=== PATIENT | female | born 1960 ===

== ENCOUNTER 2017-11-28 21:28 | Inpatient (IN) | payer MEDICARE, OTHER ==
[2017-11-28 21:32] VITALS: BMI 25.8
[2017-11-28] MEDS ORDERED: Sodium Chloride 0.9% 1,000 ML IV STA (21:47)
--- NOTE | 2017-11-28 21:53 | ED PDOC ---
HPI: Female Pain Time Seen by Provider: 11/28/17 21:39 Chief Complaint (Nursing): Fever Chief Complaint (Provider): Fever, Urinary frequency/urgency History Per: Family (son) History/Exam Limitations: no limitations Onset/Duration Of Symptoms: Days (x4) Current Symptoms Are (Timing): Still Present Additional Complaint(s): 57 year old female presents to the ER complaining of urinary urgency and frequency for 3-4 days. Denies any associated dysuria, abdominal pain, back pain , chest pain, shortness of breath, nausea, vomiting, or diarrhea. She reports 1 episode of incontinence at night. Today patient flew here from her home ([place]) and developed tactile fever and chills. Given Tylenol 1 hour prior to arrival. Patient also feels weak and per son, has seemed confused today. Was prescribed Bactrim by doctor in [place] and took 2 doses. Patient had a similar UTI 1 year ago. PMD: in [place] Past Medical History Reviewed: Historical Data, Nursing Documentation, Vital Signs Vital Signs: Last Vital Signs Temp 102.1 F H 11/28/17 21:33 Pulse 154 H 11/28/17 21:33 Resp 23 11/28/17 21:33 BP 117/80 11/28/17 21:33 Pulse Ox 98 11/28/17 21:33 - Medical History PMH: Diabetes (borderline), HTN, TIA (on plavix) Other PMH: uti - Surgical History Other surgeries: Left leg surgery for hip necrosis - Family History Family History: States: Unknown Family Hx - Living Arrangements Living Arrangements: With Family - Social History Alcohol: None Drugs: Denies - Home Medications Home Medications: Ambulatory Orders Medication Instructions Recorded Clonazepam [Clonazepam] 0.25 mg PO DAILY PRN 11/29/17 Clopidogrel [Plavix] 75 mg PO DAILY 11/29/17 HCTZ/Losartan Potassium [Hyzaar 1 tab PO DAILY 11/29/17 12.5 mg-50 mg] Levothyroxine Sodium [Levothroid] 0.137 mg PO QAM 11/29/17 Pantoprazole Sodium [Protonix] 40 mg PO DAILY 11/29/17 Pregabalin [Lyrica] 300 mg PO BID 11/29/17 Sertraline [Zoloft] 50 mg PO BID 11/29/17 - Allergies Allergies/Adverse Reactions: Allergies Allergy/AdvReac Type Severity Reaction Status Date / Time No Known Allergies Allergy Verified 11/28/17 21:31 Review of Systems ROS Statement: Except As Marked, All Systems Reviewed And Found Negative Constitutional: Positive for: Fever, Chills Cardiovascular: Negative for: Chest Pain Respiratory: Negative for: Shortness of Breath Gastrointestinal: Negative for: Nausea, Vomiting, Abdominal Pain, Diarrhea Genitourinary Female: Positive for: Frequency, Incontinence (x1), Other (urgency ). Negative for: Dysuria, Hematuria Neurological: Positive for: Weakness (generalized), Confusion Physical Exam - Reviewed Nursing Documentation Reviewed: Yes Vital Signs Reviewed: Yes - Physical Exam Appears: Positive for: Non-toxic, No Acute Distress Head Exam: Positive for: ATRAUMATIC, NORMOCEPHALIC Skin: Positive for: Normal Color, Warm, Dry Eye Exam: Positive for: EOMI, Normal appearance, PERRL ENT: Positive for: Normal ENT Inspection Neck: Positive for: Normal, Painless ROM Cardiovascular/Chest: Positive for: Tachycardia (with regular rhythm). Negative for: Murmur Respiratory: Positive for: Normal Breath Sounds. Negative for: Accessory Muscle Use, Respiratory Distress Pulses-Radial (L): 2+ Pulses-Radial (R): 2+ Gastrointestinal/Abdominal: Positive for: Normal Exam, Soft. Negative for: Tenderness, Distended Back: Positive for: Normal Inspection. Negative for: L CVA Tenderness, R CVA Tenderness Extremity: Positive for: Other (Left leg with chronic weakness (patient is wheelchair bound per family), Right leg has good strength and sensation). Negative for: Tenderness, Swelling Neurologic/Psych: Positive for: Alert, residential leasing agent II-XII, Oriented (x3). Negative for : Motor/Sensory Deficits (new deficits), Facial Droop - Laboratory Results Result Diagrams: 11/28/17 22:15 11/28/17 22:15 Interpretation Of Abn Labs: 29/1.3 bun/cr - ECG ECG: Positive for: Interpreted By Me, Viewed By Me Interpretation Of Abn EKG: junctional O2 Sat by Pulse Oximetry: 98 (RA) Pulse Ox Interpretation: Normal - Radiology X-Ray: Interpreted by Me, Viewed By Me X-Ray Interpretation: No Acute Disease - Progress ED Course And Treament: 1131: Feels better. AAOx3. HR improved. 1152: Spoke with Dr. Obregon who will admit tele. Medical Decision Making Medical Decision Making: Time: 21:47 Initial Plan: * VBG * EKG * Magnesium * Phosphorous * Troponin I * CMP * CBC * PTT * PT * Chest x-ray * Urinalysis * Urine culture * Blood culture * IV fluids * Motrin 600 mg PO * CT Abdomen/Pelvis with IV contrast Scribe Attestation: Documented by Bhavya Kenney, acting as a scribe for Wesley Mosqueda MD Provider Scribe Attestation: All medical record entries made by the Scribe were at my direction and personally dictated by me. I have reviewed the chart and agree that the record accurately reflects my personal performance of the history, physical exam, medical decision making, and the department course for this patient. I have also personally directed, reviewed, and agree with the discharge instructions and disposition. Disposition - Clinical Impression Clinical Impression: Sepsis, UTI (urinary tract infection) - Patient ED Disposition Is Patient to be Admitted: Yes Counseled Patient/Family Regarding: Studies Performed, Diagnosis - Disposition Disposition Time: 23:53 Condition: FAIR
[2017-11-28 22:26] LABS: BASO % 0.6 % (0.0-2.0); EOS % 0.1 % (0.0-4.0); HEMOGLOBIN 15.3 g/dL (12.0-16.0); LYMPH # 0.5 K/uL (1.0-4.3); LYMPH % 6.8 % (20.0-40.0); MEAN CELL VOLUME 84.8 fl (81.0-99.0); MEAN CORPUSCULAR HEMOGLOBIN 28.3 pg (27.0-31.0); MEAN CORPUSCULAR HGB CONC 33.4 g/dL (33.0-37.0); MEAN PLATELET VOLUME 10.2 fl (7.2-11.7); MONO # 0.6 K/uL (0.0-0.8); MONO % 7.8 % (0.0-10.0); NEUT # 6.7 K/uL (1.8-7.0); NEUT % 84.7 % (50.0-75.0); NRBC % 0.2 % (0.0-0.0); PLATELET COUNT 149 K/uL (130-400); RBC 5.39 Mil/uL (3.80-5.20); RED CELL DISTRIBUTION WIDTH 14.7 % (11.5-14.5); WHITE BLOOD COUNT 7.9 K/uL (4.8-10.8)
[2017-11-28 22:29] LABS: VENOUS BLOOD GAS BASE EXCESS -1.1 mmol/L (0.0-2.0); VENOUS BLOOD GAS PCO2 34 mmHg (40-60); VENOUS BLOOD GAS PO2 31 mm/Hg (30-55); VENOUS BLOOD PH 7.43 (7.32-7.43)
[2017-11-28 22:54] LABS: ALB/GLOB RATIO 1.1 (1.0-2.1); ALBUMIN 4.1 g/dL (3.5-5.0); CALCIUM 10.2 mg/dL (8.4-10.2); MAGNESIUM 1.6 MG/DL (1.6-2.3)
[2017-11-28 23:03] LABS: TROPONIN I 0.039 ng/mL (0.00-0.120)
[2017-11-28] MEDS ORDERED: Ciprofloxacin 400mg/200ml D5W 400 MG/200 ML BAG IV STA (23:42)
[2017-11-28 23:52] LABS: INR 1.3 (0.9-1.2); PARTIAL THROMBOPLASTIN TIME 34.6 Seconds (25.6-37.1); PROTHROMBIN TIME 14.6 Seconds (9.8-13.1)
[2017-11-29] LABS: BANDS 1 % (0-2); LYMPHOCYTE 9 % (20-50); MONOCYTE 3 % (0-10); NEUTROPHIL 85 % (42-75); REACTIVE LYMPHOCYTES 2 % (0-0); TOTAL CELLS COUNTED 100
[2017-11-29 00:01] LABS: PLATELET ESTIMATE NORMAL (NORMAL)
[2017-11-29] MEDS ORDERED: Ciprofloxacin 400mg/200ml D5W 400 MG/200 ML BAG IVPB ONE (00:07)
--- NOTE | 2017-11-29 00:15 | CT ---
EXAM: CT Abdomen and Pelvis Without Intravenous Contrast CLINICAL HISTORY: 57 years old, female; Pain; Abdominal pain; Generalized; Prior surgery; Surgery date: 6+ months; Surgery type: HX of hernia surgery; Additional info: R/O stone TECHNIQUE: Axial computed tomography images of the abdomen and pelvis without intravenous contrast. All CT scans at this facility use one or more dose reduction techniques, viz.: automated exposure control; ma/kV adjustment per patient size (including targeted exams where dose is matched to indication; i.e. head); or iterative reconstruction technique. Coronal and sagittal reformatted images were created and reviewed. COMPARISON: No relevant prior studies available. FINDINGS: Lower thorax: There is a small pericardial fluid collection present. ABDOMEN: Liver: There is a 2.7 x 2.2 x 2.6 cm cyst with wall calcification in the right hepatic lobe. Gallbladder and bile ducts: There has been a cholecystectomy. No ductal dilation. Pancreas: Unremarkable. No ductal dilation. Spleen: Unremarkable. No splenomegaly. Adrenals: Unremarkable. No mass. Kidneys and ureters: There is a 12 mm stone in the right renal pelvis. There is a 13 mm stone in right upper pole. Mild perinephric stranding bilaterally, left greater than right. Left periureteral inflammatory stranding. No hydronephrosis. Stomach and bowel: Mild diverticulosis is present in the sigmoid and descending colon. There is diffuse thinning of the abdominal wall musculature. There is a broad-based central hernia in the pelvis containing small bowel without obstruction. No mucosal thickening. Appendix: No findings to suggest acute appendicitis. PELVIS: Bladder: Unremarkable. No stones. Reproductive: Unremarkable as visualized. ABDOMEN and PELVIS: Intraperitoneal space: Unremarkable. No free air. No significant fluid collection. Bones/joints: The left femoral head is absent likely secondary to surgical resection. There soft tissue density surrounding the proximal left proximal femur. There are lytic changes involving the left hemipelvis with cortical erosion. Scoliosis and degenerative changes. Vasculature: There are numerous benign phleboliths in the pelvis. The aorta demonstrates mild atherosclerotic calcification. No abdominal aortic aneurysm. There is a soft tissue defect in the left region suggesting a decubitus ulcer. IMPRESSION: Right renal stone. Right pelvic stone. No significant hydronephrosis. Bilateral perinephric stranding, left greater than right. Left periureteral inflammatory stranding. Correlate clinically to exclude infectious/inflammatory process. Large broad-based ventral hernia without obstruction. Probable surgical resection of the left femoral head with surrounding soft tissue density. Lytic changes in the left hemipelvis with cortical erosion. Recommend correlation with surgical history. The Diverticulosis. No acute diverticulitis. Hepatic cyst with wall calcification.
[2017-11-29 01:15] LABS: VENOUS BLOOD GAS BASE EXCESS -4.4 mmol/L (0.0-2.0); VENOUS BLOOD GAS PCO2 35 mmHg (40-60); VENOUS BLOOD GAS PO2 40 mm/Hg (30-55); VENOUS BLOOD PH 7.37 (7.32-7.43)
[2017-11-29 01:53] LABS: URINE BACTERIA OCC (<OCC); URINE BILIRUBIN NEGATIVE (NEGATIVE); URINE BLOOD MODERATE (NEGATIVE); URINE CLARITY TURBID (Clear); URINE COLOR YELLOW (YELLOW); URINE GLUCOSE (UA) NEG (Normal); URINE LEUKOCYTE ESTERASE LARGE Leu/uL (Negative); URINE NITRATE NEGATIVE (NEGATIVE); URINE PROTEIN 100 mg/dL (NEGATIVE); URINE UROBILINOGEN 0.2-1.0 mg/dL (0.2-1.0); WBC CLUMPS MOD /hpf
[2017-11-29] MEDS: Sodium Chloride 0.9% 1,000 ML IV SCH ×2 (07:49→19:03)
[2017-11-29] MEDS: Ciprofloxacin 200mg/100ml D5W 100 ML IVPB SCH ×2 (09:12→21:16)
[2017-11-29] MEDS: Pantoprazole 40 mg EC Tab PO SCH (09:15)
--- NOTE | 2017-11-29 10:38 | RAD ---
HISTORY: Sepsis Patient COMPARISON: No prior. FINDINGS: LUNGS: No active pulmonary disease. PLEURA: No significant pleural effusion identified, no pneumothorax apparent. CARDIOVASCULAR: Normal. OSSEOUS STRUCTURES: Gross S-shaped thoracolumbar scoliotic deformity distorts the mediastinum somewhat. VISUALIZED UPPER ABDOMEN: Normal. OTHER FINDINGS: None. IMPRESSION: No definite acute infiltrate or pleural effusion identified. No pneumothorax.
--- NOTE | 2017-11-29 11:36 | CP.PCM.CON ---
History of Present Illness - History of Present Illness History of Present Illness: 57 year old female presents to the ER complaining of urinary urgency and frequency for 3-4 days. Cardiology consult is called for bradycardia. 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 years 20 years ago she had Ablation of the AV Node secondary to atrial fibrillation She denies any dizziness or chest pain or syncope The pt is comfortable No cardiac work up needed at this time Past Patient History - Past Medical History & Family History Past Medical History?: Yes - Past Social History Smoking Status: Never Smoked - CARDIAC Hx Cardiac Disorders: Yes Hx Hypertension: Yes - PULMONARY Hx Respiratory Disorders: No - NEUROLOGICAL Hx Neurological Disorder: Yes Hx Transient Ischemic Attacks (TIA): Yes (on plavix) - HEENT Hx HEENT Problems: No - RENAL Hx Chronic Kidney Disease: No - ENDOCRINE/METABOLIC Hx Endocrine Disorders: Yes Hx Diabetes Mellitus Type 2: Yes - HEMATOLOGICAL/ONCOLOGICAL Hx Blood Disorders: No - INTEGUMENTARY Hx Dermatological Problems: No - MUSCULOSKELETAL/RHEUMATOLOGICAL Hx Musculoskeletal Disorders: No Hx Falls: No - GASTROINTESTINAL Hx Gastrointestinal Disorders: No - GENITOURINARY/GYNECOLOGICAL Hx Genitourinary Disorders: Yes Hx Urinary Tract Infection: Yes - PSYCHIATRIC Hx Psychophysiologic Disorder: No Hx Substance Use: No - SURGICAL HISTORY Hx Surgeries: Yes Hx Herniorrhaphy: Yes Hx Musculoskeletal Surgery: Yes Hx Thyroidectomy: Yes Other/Comment: Left hip surgery. - ANESTHESIA Hx Anesthesia: Yes Hx Anesthesia Reactions: No Hx Malignant Hyperthermia: No Meds Allergies/Adverse Reactions: Allergies Allergy/AdvReac Type Severity Reaction Status Date / Time No Known Allergies Allergy Verified 11/28/17 21:31 - Medications Medications: Current Medications Clonazepam (Klonopin) 0.25 mg PO DAILY PRN PRN Reason: Anxiety Last Admin: 11/29/17 11:01 Dose: 0.25 mg Clopidogrel Bisulfate (Plavix) 75 mg PO DAILY [facility] Last Admin: 11/29/17 09:12 Dose: 75 mg Ciprofloxacin (Cipro 200mg/100ml D5w) 100 mls @ 100 mls/hr IVPB Q12 [facility] Last Admin: 11/29/17 09:12 Dose: 100 mls/hr Sodium Chloride (Sodium Chloride 0.9%) 1,000 mls @ 90 mls/hr IV .[id number] [facility] Stop: 11/30/17 05:32 Last Admin: 11/29/17 07:49 Dose: 90 mls/hr Levothyroxine Sodium (Levothroid) 137 mcg PO DAILY@0630 [facility] Last Admin: 11/29/17 07:01 Dose: 137 mcg Pantoprazole Sodium (Protonix Ec Tab) 40 mg PO DAILY [facility] Last Admin: 11/29/17 09:15 Dose: 40 mg Pregabalin (Lyrica) 300 mg PO BID [facility] Last Admin: 11/29/17 09:15 Dose: 300 mg Sertraline HCl (Zoloft) 50 mg PO BID [facility] Last Admin: 11/29/17 09:13 Dose: 50 mg Results - Vital Signs Recent Vital Signs: Last Vital Signs Temp 97.2 F L 11/29/17 08:14 Pulse 53 L 11/29/17 09:00 Resp 18 11/29/17 08:14 BP 96/74 L 11/29/17 08:14 Pulse Ox 95 11/29/17 08:14 - Labs Result Diagrams: 11/28/17 22:15 11/28/17 22:15 Labs: Laboratory Results - last 24 hr 11/28/17 11/28/17 11/28/17 22:15 22:15 22:15 WBC 7.9 RBC 5.39 H Hgb 15.3 Hct 45.7 MCV 84.8 MCH 28.3 MCHC 33.4 RDW 14.7 H Plt Count 149 MPV 10.2 Neut % (Auto) 84.7 H Lymph % (Auto) 6.8 L [place] % (Auto) 7.8 Eos % (Auto) 0.1 Baso % (Auto) 0.6 Neut # (Auto) 6.7 Lymph # (Auto) 0.5 L [place] # (Auto) 0.6 Eos # (Auto) 0.0 Baso # (Auto) 0.0 Neutrophils % (Manual) 85 H Band Neutrophils % 1 Lymphocytes % (Manual) 9 L Reactive Lymphs % 2 H Monocytes % (Manual) 3 Platelet Estimate Normal RBC Morphology Normal PT 14.6 H INR 1.3 H APTT 34.6 pO2 VBG pH VBG pCO2 VBG HCO3 VBG Total CO2 VBG O2 Sat (Calc) VBG Base Excess VBG Potassium Glucose Lactate FiO2 Sodium 139 Potassium 3.5 L Chloride 103 Carbon Dioxide 19 L Anion Gap 21 H BUN 29 H Creatinine 1.3 H Est GFR ( Amer) 51 Est GFR (Non-Af Amer) 42 POC Glucose (mg/dL) Random Glucose 165 H Calcium 10.2 Phosphorus 1.7 L Magnesium 1.6 Total Bilirubin 1.8 H AST 33 ALT 47 Alkaline Phosphatase 110 Troponin I 0.0390 Total Protein 7.7 Albumin 4.1 Globulin 3.7 Albumin/Globulin Ratio 1.1 Venous Blood Potassium Urine Color Urine Clarity Urine pH Ur Specific [place] Urine Protein Urine Glucose (UA) Urine Ketones Urine Blood Urine Nitrate Urine Bilirubin Urine Urobilinogen Ur Leukocyte Esterase Urine RBC (Auto) Urine WBC Clumps (Auto) Urine Microscopic WBC Urine Bacteria Urine Yeast (Budding) 11/28/17 11/28/17 11/29/17 22:26 23:50 01:13 WBC RBC Hgb Hct MCV MCH MCHC RDW Plt Count MPV Neut % (Auto) Lymph % (Auto) [place] % (Auto) Eos % (Auto) Baso % (Auto) Neut # (Auto) Lymph # (Auto) [place] # (Auto) Eos # (Auto) Baso # (Auto) Neutrophils % (Manual) Band Neutrophils % Lymphocytes % (Manual) Reactive Lymphs % Monocytes % (Manual) Platelet Estimate RBC Morphology PT INR APTT pO2 31 40 VBG pH 7.43 7.37 VBG pCO2 34 L 35 L VBG HCO3 23.1 20.8 VBG Total CO2 23.6 21.3 L VBG O2 Sat (Calc) 68.8 H 80.5 H VBG Base Excess -1.1 L -4.4 L VBG Potassium 3.4 L 3.0 L Glucose 169 H 289 H Lactate 2.0 1.7 FiO2 21.0 21.0 Sodium 136.0 129.0 L Potassium Chloride 104.0 104.0 Carbon Dioxide Anion Gap BUN Creatinine Est GFR ( Amer) Est GFR (Non-Af Amer) POC Glucose (mg/dL) 251 H Random Glucose Calcium Phosphorus Magnesium Total Bilirubin AST ALT Alkaline Phosphatase Troponin I Total Protein Albumin Globulin Albumin/Globulin Ratio Venous Blood Potassium 3.4 L 3.0 L Urine Color Urine Clarity Urine pH Ur Specific [place] Urine Protein Urine Glucose (UA) Urine Ketones Urine Blood Urine Nitrate Urine Bilirubin Urine Urobilinogen Ur Leukocyte Esterase Urine RBC (Auto) Urine WBC Clumps (Auto) Urine Microscopic WBC Urine Bacteria Urine Yeast (Budding) 11/29/17 11/29/17 01:32 05:54 WBC RBC Hgb Hct MCV MCH MCHC RDW Plt Count MPV Neut % (Auto) Lymph % (Auto) [place] % (Auto) Eos % (Auto) Baso % (Auto) Neut # (Auto) Lymph # (Auto) [place] # (Auto) Eos # (Auto) Baso # (Auto) Neutrophils % (Manual) Band Neutrophils % Lymphocytes % (Manual) Reactive Lymphs % Monocytes % (Manual) Platelet Estimate RBC Morphology PT INR APTT pO2 VBG pH VBG pCO2 VBG HCO3 VBG Total CO2 VBG O2 Sat (Calc) VBG Base Excess VBG Potassium Glucose Lactate FiO2 Sodium Potassium Chloride Carbon Dioxide Anion Gap BUN Creatinine Est GFR ( Amer) Est GFR (Non-Af Amer) POC Glucose (mg/dL) 131 H Random Glucose Calcium Phosphorus Magnesium Total Bilirubin AST ALT Alkaline Phosphatase Troponin I Total Protein Albumin Globulin Albumin/Globulin Ratio Venous Blood Potassium Urine Color Yellow Urine Clarity Turbid Urine pH 6.0 Ur Specific [place] 1.015 Urine Protein 100 Urine Glucose (UA) Neg Urine Ketones Negative Urine Blood Moderate Urine Nitrate Negative Urine Bilirubin Negative Urine Urobilinogen 0.2-1.0 Ur Leukocyte Esterase Large Urine RBC (Auto) 51 H Urine WBC Clumps (Auto) Mod H Urine Microscopic WBC 1037 H Urine Bacteria Occ H Urine Yeast (Budding) Few H Assessment & Plan (1) Bradycardia Assessment and Plan: Secondary to Ablation 20 yrs ago Status: Acute
--- NOTE | 2017-11-29 13:35 | CP.PCM.HP ---
History of Present Illness - History of Present Illness History of Present Illness: CC: Urine symptoms/ Fever 57 y/o F, [facility] symptoms that began 4 days [employer] , Pt with no relief. Pt with Hx of UTI 1 year ago, c/o of difficulty voiding associated to fever and chills from day [employer] while at home, in ER TMAx 102.1 HR: 154, BP 117/80. Worsening symptoms: Urinary frequency/urgency. Also in Telemetry, Pt having sinus bradycardia, HR in the 40's. She reported Hx of Ablation of the AV node 2nd to A Fib 20 yrs ago, currently asymptomatic. Aggravated factor: Wheelchair bound. Pt denied: Dysuria, abdominal pain, n/d/v, bloody stool, back pain, CP, palpitations, SOB, sick contact, Pt admits recent travel to [facility]. PMHx: UTI 1 year ago, TIA on Plavix, HTN, DM, Anxiety, L THR. Abd/Pelv CT shows: R renal and pelvis stones. Diverticulitis. Large broad- base ventral hernia w/o obstruction. B/L perinephric stranding, L>R. EKG: Bradycardia. CXR: No infiltrate or Pneumothorax. Present on Admission - Present on Admission Any Indicators Present on Admission: No Review of Systems - Constitutional Constitutional: Chills, Fever, Weakness - EENT Eyes: Other (negative) Ears: Other (negative) Nose/Mouth/Throat: Other (negative) - Cardiovascular Cardiovascular: Slow Heart Rate - Respiratory Respiratory: Other (negative) - Gastrointestinal Gastrointestinal: Other (negative) - Genitourinary Genitourinary: Difficulty Urinating, Urinary Urgency, Voiding Freq/Small Amts - Musculoskeletal Musculoskeletal: Other (negative) - Integumentary Integumentary: Other (negative) - Neurological Neurological: Weakness - Psychiatric Psychiatric: Anxiety - Endocrine Endocrine: Other (negative) - Hematologic/Lymphatic Hematologic: Other (negative) Past Patient History - Past Medical History & Family History Past Medical History?: Yes Pertinent Family History: Unknown - Past Social History Smoking Status: Never Smoked Alcohol: None Drugs: Denies Home Situation {Lives}: With Family - CARDIAC Hx Cardiac Disorders: Yes Hx Hypertension: Yes - PULMONARY Hx Respiratory Disorders: No - NEUROLOGICAL Hx Neurological Disorder: Yes Hx Transient Ischemic Attacks (TIA): Yes (on plavix) - HEENT Hx HEENT Problems: No - RENAL Hx Chronic Kidney Disease: No - ENDOCRINE/METABOLIC Hx Endocrine Disorders: Yes Hx Diabetes Mellitus Type 2: Yes - HEMATOLOGICAL/ONCOLOGICAL Hx Blood Disorders: No - INTEGUMENTARY Hx Dermatological Problems: No - MUSCULOSKELETAL/RHEUMATOLOGICAL Hx Musculoskeletal Disorders: No Hx Falls: No - GASTROINTESTINAL Hx Gastrointestinal Disorders: No - GENITOURINARY/GYNECOLOGICAL Hx Genitourinary Disorders: Yes Hx Urinary Tract Infection: Yes - PSYCHIATRIC Hx Psychophysiologic Disorder: No Hx Substance Use: No - SURGICAL HISTORY Hx Surgeries: Yes Hx Herniorrhaphy: Yes Hx Musculoskeletal Surgery: Yes Hx Thyroidectomy: Yes Other/Comment: Left hip surgery. - ANESTHESIA Hx Anesthesia: Yes Hx Anesthesia Reactions: No Hx Malignant Hyperthermia: No Meds Allergies/Adverse Reactions: Allergies Allergy/AdvReac Type Severity Reaction Status Date / Time No Known Allergies Allergy Verified 11/28/17 21:31 Physical Exam - Constitutional Appears: No Acute Distress - Head Exam Head Exam: NORMAL INSPECTION - Eye Exam Eye Exam: PERRL - ENT Exam ENT Exam: Normal Exam - Neck Exam Neck exam: Positive for: Normal Inspection - Respiratory Exam Respiratory Exam: NORMAL BREATHING PATTERN - Cardiovascular Exam Cardiovascular Exam: Bradycardia - GI/Abdominal Exam GI & Abdominal Exam: Normal Bowel Sounds, Soft - Extremities Exam Additional comments: LLE weakness. - Back Exam Back exam: NORMAL INSPECTION - Neurological Exam Neurological exam: Alert, CN II-XII Intact, Oriented x3 Additional comments: Weakness LLE - Psychiatric Exam Psychiatric exam: Normal Mood - Skin Skin Exam: Warm Results - Vital Signs Recent Vital Signs: Last Vital Signs Temp 97.4 F L 11/29/17 12:17 Pulse 51 L 11/29/17 12:17 Resp 18 11/29/17 12:17 BP 105/74 11/29/17 12:17 Pulse Ox 96 11/29/17 12:17 reviewed J.P. - Labs Result Diagrams: 11/28/17 22:15 11/28/17 22:15 Labs: Laboratory Results - last 24 hr 11/28/17 11/28/17 11/28/17 22:15 22:15 22:15 WBC 7.9 RBC 5.39 H Hgb 15.3 Hct 45.7 MCV 84.8 MCH 28.3 MCHC 33.4 RDW 14.7 H Plt Count 149 MPV 10.2 Neut % (Auto) 84.7 H Lymph % (Auto) 6.8 L [place] % (Auto) 7.8 Eos % (Auto) 0.1 Baso % (Auto) 0.6 Neut # (Auto) 6.7 Lymph # (Auto) 0.5 L [place] # (Auto) 0.6 Eos # (Auto) 0.0 Baso # (Auto) 0.0 Neutrophils % (Manual) 85 H Band Neutrophils % 1 Lymphocytes % (Manual) 9 L Reactive Lymphs % 2 H Monocytes % (Manual) 3 Platelet Estimate Normal RBC Morphology Normal PT 14.6 H INR 1.3 H APTT 34.6 pO2 VBG pH VBG pCO2 VBG HCO3 VBG Total CO2 VBG O2 Sat (Calc) VBG Base Excess VBG Potassium Glucose Lactate FiO2 Sodium 139 Potassium 3.5 L Chloride 103 Carbon Dioxide 19 L Anion Gap 21 H BUN 29 H Creatinine 1.3 H Est GFR ( Amer) 51 Est GFR (Non-Af Amer) 42 POC Glucose (mg/dL) Random Glucose 165 H Calcium 10.2 Phosphorus 1.7 L Magnesium 1.6 Total Bilirubin 1.8 H AST 33 ALT 47 Alkaline Phosphatase 110 Troponin I 0.0390 Total Protein 7.7 Albumin 4.1 Globulin 3.7 Albumin/Globulin Ratio 1.1 Venous Blood Potassium Urine Color Urine Clarity Urine pH Ur Specific [place] Urine Protein Urine Glucose (UA) Urine Ketones Urine Blood Urine Nitrate Urine Bilirubin Urine Urobilinogen Ur Leukocyte Esterase Urine RBC (Auto) Urine WBC Clumps (Auto) Urine Microscopic WBC Urine Bacteria Urine Yeast (Budding) 11/28/17 11/28/17 11/29/17 22:26 23:50 01:13 WBC RBC Hgb Hct MCV MCH MCHC RDW Plt Count MPV Neut % (Auto) Lymph % (Auto) [place] % (Auto) Eos % (Auto) Baso % (Auto) Neut # (Auto) Lymph # (Auto) [place] # (Auto) Eos # (Auto) Baso # (Auto) Neutrophils % (Manual) Band Neutrophils % Lymphocytes % (Manual) Reactive Lymphs % Monocytes % (Manual) Platelet Estimate RBC Morphology PT INR APTT pO2 31 40 VBG pH 7.43 7.37 VBG pCO2 34 L 35 L VBG HCO3 23.1 20.8 VBG Total CO2 23.6 21.3 L VBG O2 Sat (Calc) 68.8 H 80.5 H VBG Base Excess -1.1 L -4.4 L VBG Potassium 3.4 L 3.0 L Glucose 169 H 289 H Lactate 2.0 1.7 FiO2 21.0 21.0 Sodium 136.0 129.0 L Potassium Chloride 104.0 104.0 Carbon Dioxide Anion Gap BUN Creatinine Est GFR ( Amer) Est GFR (Non-Af Amer) POC Glucose (mg/dL) 251 H Random Glucose Calcium Phosphorus Magnesium Total Bilirubin AST ALT Alkaline Phosphatase Troponin I Total Protein Albumin Globulin Albumin/Globulin Ratio Venous Blood Potassium 3.4 L 3.0 L Urine Color Urine Clarity Urine pH Ur Specific [place] Urine Protein Urine Glucose (UA) Urine Ketones Urine Blood Urine Nitrate Urine Bilirubin Urine Urobilinogen Ur Leukocyte Esterase Urine RBC (Auto) Urine WBC Clumps (Auto) Urine Microscopic WBC Urine Bacteria Urine Yeast (Budding) 11/29/17 11/29/17 11/29/17 01:32 05:54 11:40 WBC RBC Hgb Hct MCV MCH MCHC RDW Plt Count MPV Neut % (Auto) Lymph % (Auto) [place] % (Auto) Eos % (Auto) Baso % (Auto) Neut # (Auto) Lymph # (Auto) [place] # (Auto) Eos # (Auto) Baso # (Auto) Neutrophils % (Manual) Band Neutrophils % Lymphocytes % (Manual) Reactive Lymphs % Monocytes % (Manual) Platelet Estimate RBC Morphology PT INR APTT pO2 VBG pH VBG pCO2 VBG HCO3 VBG Total CO2 VBG O2 Sat (Calc) VBG Base Excess VBG Potassium Glucose Lactate FiO2 Sodium Potassium Chloride Carbon Dioxide Anion Gap BUN Creatinine Est GFR ( Amer) Est GFR (Non-Af Amer) POC Glucose (mg/dL) 131 H 133 H Random Glucose Calcium Phosphorus Magnesium Total Bilirubin AST ALT Alkaline Phosphatase Troponin I Total Protein Albumin Globulin Albumin/Globulin Ratio Venous Blood Potassium Urine Color Yellow Urine Clarity Turbid Urine pH 6.0 Ur Specific [place] 1.015 Urine Protein 100 Urine Glucose (UA) Neg Urine Ketones Negative Urine Blood Moderate Urine Nitrate Negative Urine Bilirubin Negative Urine Urobilinogen 0.2-1.0 Ur Leukocyte Esterase Large Urine RBC (Auto) 51 H Urine WBC Clumps (Auto) Mod H Urine Microscopic WBC 1037 H Urine Bacteria Occ H Urine Yeast (Budding) Few H reviewed J.P. - EKG Data EKG comments: reviewed J.P. - Imaging and Cardiology Chest x-ray Status: Report reviewed by me (Timothy) CT scan - pelvis Status: Report reviewed by me (Timothy) CT scan - abdomen Status: Report reviewed by me (Timothy) Assessment & Plan (1) UTI (urinary tract infection) Status: Acute Priority: High (2) Bradycardia Status: Acute Priority: High (3) HTN (hypertension) Status: Chronic Priority: Low (4) Hypothyroidism Status: Chronic Priority: Medium (5) Anxiety Status: Chronic Priority: Medium (6) Depression Status: Chronic Priority: Medium - Assessment and Plan (Free Text) Plan: F/U Echo, EKG, Blood C-S, U C-S, continue Cipro, Lyrica, klonopin, Protonix and rest of medications, Cardiology consult appreciated. - Date & Time Date: 11/29/17 Time: 12:45
--- NOTE | 2017-11-29 18:14 | CARD ---
APPROVED REPORT EXAM: Two-dimensional and M-mode echocardiogram with Doppler and color Doppler. Other Information Quality : GoodRhythm : Bradycardia INDICATION Abnormal EKG/Arrhythmia Bradycardia 2D DIMENSIONS IVSd1.55 (0.7-1.1cm)LVDd4.00 (3.9-5.9cm) LVOT Diameter2.19 (1.8-2.4cm)PWd1.00 (0.7-1.1cm) IVSs1.49 (0.8-1.2cm)LVDs4.11 (2.5-4.0cm) FS (%) 2.5 %PWs1.13 (0.8-1.2cm) LVEF (%)55.0 (>50%) M-Mode DIMENSIONS Left Atrium (MM)4.94 (2.5-4.0cm)IVSd1.59 (0.7-1.1cm) Aortic Root3.06 (2.2-3.7cm)LVDd4.56 (4.0-5.6cm) Aortic Cusp Exc.1.88 (1.5-2.0cm)PWd1.66 (0.7-1.1cm) IVSs2.13 cmFS (%) 39 % LVDs2.78 (2.0-3.8cm)PWs1.81 cm Mitral Valve MV E Srixzxgf86.8cm/sMV DECEL [id number] A Tbawtixt06.2cm/s MV KNV59sbC/A ratio2.8MVA (PHT)4.88cm2 TDI Lateral E' Peak V15.89cm/sMedial E' Peak V10.51cm/sE/Lateral E'3.3 E/Medial E'4.9 Pulmonary Valve PV Peak Lnofjbyw62.8cm/s Tricuspid Valve TR Peak Dmthionq738ei/sRAP [id number] Peak Gr.17mmHg [id number] LEFT VENTRICLE The left ventricle is normal size. There is mild concentric left ventricular hypertrophy. The left ventricular ejection fraction is within the normal range. There is a flattened septum Transmitral Doppler flow pattern is Grade I-abnormal relaxation pattern. RIGHT VENTRICLE The right ventricle is mildly dilated. There is normal right ventricular wall thickness. The right ventricular systolic function is normal. ATRIA The left atrium is mildly dilated. The right atrium size is normal. AORTIC VALVE The aortic valve is not well visualized. No aortic regurgitation is present. There is no aortic valvular stenosis. MITRAL VALVE The mitral valve is mildly thickened. There is no mitral valve stenosis. There is no mitral valve regurgitation noted. TRICUSPID VALVE The tricuspid valve is normal in structure. There is mild to moderate tricuspid regurgitation. PULMONIC VALVE The pulmonary valve is normal in structure. There is trace pulmonic valvular regurgitation. GREAT VESSELS The aortic root is normal in size. The IVC is dilated. PERICARDIAL EFFUSION There is a trace circumferential pericardial effusion. <Conclusion> The left ventricle is normal size. There is mild concentric left ventricular hypertrophy. The left ventricular ejection fraction is within the normal range. There is a flattened septum Transmitral Doppler flow pattern is Grade I-abnormal relaxation pattern. There is mild to moderate tricuspid regurgitation.
--- NOTE | 2017-11-29 19:07 | CARD ---
APPROVED REPORT EKG Measurement Heart [id number] <Conclusion> Accelerated Junctional rhythm Nonspecific ST abnormality, Abnormal ECG
--- NOTE | 2017-11-29 19:10 | CARD ---
APPROVED REPORT EKG Measurement Heart [id number] <Conclusion> Accelerated Junctional rhythm with retrograde conduction Pulmonary disease pattern Left anterior fascicular block Abnormal ECG
--- NOTE | 2017-11-29 19:11 | CARD ---
APPROVED REPORT EKG Measurement Heart [id number] [id number] <Conclusion> Junctional tachycardia Pulmonary disease pattern Left anterior fascicular block Abnormal ECG
[2017-11-30] MEDS: Sodium Chloride 0.9% 1,000 ML IV SCH (04:41)
[2017-11-30 08:36] VITALS: O2SAT 98
[2017-11-30] MEDS: Ciprofloxacin 200mg/100ml D5W 100 ML IVPB SCH (09:21)
[2017-11-30] MEDS: Pantoprazole 40 mg EC Tab PO SCH (09:22)
--- NOTE | 2017-11-30 11:39 | CP.PCM.PN ---
Subjective - Date & Time of Evaluation Date of Evaluation: 11/30/17 Time of Evaluation: 10:00 - Subjective Subjective: pt denies any complaints HR : 82 BPM today Objective - Vital Signs/Intake and Output Vital Signs (last 24 hours): Temp Pulse Resp BP Pulse Ox 98.7 F 65 18 115/78 98 11/30/17 08:35 11/30/17 08:35 11/30/17 08:35 11/30/17 08:35 11/30/17 08:35 - Medications Medications: Current Medications Acetaminophen (Tylenol 325mg Tab) 650 mg PO Q4 PRN PRN Reason: Fever >100.4 F Last Admin: 11/30/17 00:25 Dose: 650 mg Clonazepam (Klonopin) 0.25 mg PO DAILY PRN PRN Reason: Anxiety Last Admin: 11/30/17 00:16 Dose: 0.25 mg Clopidogrel Bisulfate (Plavix) 75 mg PO DAILY [facility] Last Admin: 11/30/17 09:22 Dose: 75 mg Docusate Sodium (Colace) 100 mg PO BID [facility] Last Admin: 11/30/17 10:47 Dose: 100 mg Ciprofloxacin (Cipro 200mg/100ml D5w) 100 mls @ 100 mls/hr IVPB Q12 [facility] Last Admin: 11/30/17 09:21 Dose: 100 mls/hr Levothyroxine Sodium (Levothroid) 137 mcg PO DAILY@0630 [facility] Last Admin: 11/30/17 06:35 Dose: 137 mcg Pantoprazole Sodium (Protonix Ec Tab) 40 mg PO DAILY [facility] Last Admin: 11/30/17 09:22 Dose: 40 mg Pregabalin (Lyrica) 300 mg PO BID [facility] Last Admin: 11/30/17 10:30 Dose: 300 mg Sertraline HCl (Zoloft) 50 mg PO BID [facility] Last Admin: 11/30/17 09:22 Dose: 50 mg - Labs Labs: 11/28/17 22:15 11/28/17 22:15 PT 14.6 Seconds (9.8-13.1) H 11/28/17 22:15 INR 1.3 (0.9-1.2) H 11/28/17 22:15 APTT 34.6 Seconds (25.6-37.1) 11/28/17 22:15 Assessment and Plan (1) Bradycardia Status: Acute
[2017-11-30 12:26] VITALS: BP 112/80; PULSE 75; RESP 20; TEMP 98
--- NOTE | 2017-11-30 15:30 | CP.PCM.DIS ---
Provider - Provider Date of Admission: 11/28/17 23:52 Attending physician: Manuel Obregon MD Consults: Cardiology. Time Spent in preparation of Discharge (in minutes): 35 Diagnosis - Discharge Diagnosis (1) UTI (urinary tract infection) Status: Acute Priority: High (2) Bradycardia Status: Acute Priority: High (3) HTN (hypertension) Status: Chronic Priority: Low (4) Hypothyroidism Status: Chronic Priority: Medium (5) Anxiety Status: Chronic Priority: Medium (6) Depression Status: Chronic Priority: Medium Hospital Course - Lab Results Lab Results: Micro Results 11/28/17 02:37 Blood Blood Culture - Preliminary NO GROWTH AFTER 24 HOURS 11/28/17 02:37 Blood Blood Culture - Preliminary NO GROWTH AFTER 24 HOURS Most Recent Lab Values WBC 7.9 K/uL (4.8-10.8) 11/28/17 22:15 RBC 5.39 Mil/uL (3.80-5.20) H 11/28/17 22:15 Hgb 15.3 g/dL (12.0-16.0) 11/28/17 22:15 Hct 45.7 % (34.0-47.0) 11/28/17 22:15 MCV 84.8 fl (81.0-99.0) 11/28/17 22:15 MCH 28.3 pg (27.0-31.0) 11/28/17 22:15 MCHC 33.4 g/dL (33.0-37.0) 11/28/17 22:15 RDW 14.7 % (11.5-14.5) H 11/28/17 22:15 Plt Count 149 K/uL (130-400) 11/28/17 22:15 MPV 10.2 fl (7.2-11.7) 11/28/17 22:15 Neut % (Auto) 84.7 % (50.0-75.0) H 11/28/17 22:15 Lymph % (Auto) 6.8 % (20.0-40.0) L 11/28/17 22:15 [place] % (Auto) 7.8 % (0.0-10.0) 11/28/17 22:15 Eos % (Auto) 0.1 % (0.0-4.0) 11/28/17 22:15 Baso % (Auto) 0.6 % (0.0-2.0) 11/28/17 22:15 Neut # (Auto) 6.7 K/uL (1.8-7.0) 11/28/17 22:15 Lymph # (Auto) 0.5 K/uL (1.0-4.3) L 11/28/17 22:15 [place] # (Auto) 0.6 K/uL (0.0-0.8) 11/28/17 22:15 Eos # (Auto) 0.0 K/uL (0.0-0.7) 11/28/17 22:15 Baso # (Auto) 0.0 K/uL (0.0-0.2) 11/28/17 22:15 Neutrophils % (Manual) 85 % (42-75) H 11/28/17 22:15 Band Neutrophils % 1 % (0-2) 11/28/17 22:15 Lymphocytes % (Manual) 9 % (20-50) L 11/28/17 22:15 Reactive Lymphs % 2 % (0-0) H 11/28/17 22:15 Monocytes % (Manual) 3 % (0-10) 11/28/17 22:15 Platelet Estimate Normal (NORMAL) 11/28/17 22:15 RBC Morphology Normal (NORMAL) 11/28/17 22:15 PT 14.6 Seconds (9.8-13.1) H 11/28/17 22:15 INR 1.3 (0.9-1.2) H 11/28/17 22:15 APTT 34.6 Seconds (25.6-37.1) 11/28/17 22:15 pO2 40 mm/Hg (30-55) 11/29/17 01:13 VBG pH 7.37 (7.32-7.43) 11/29/17 01:13 VBG pCO2 35 mmHg (40-60) L 11/29/17 01:13 VBG HCO3 20.8 mmol/L 11/29/17 01:13 VBG Total CO2 21.3 mmol/L (22-28) L 11/29/17 01:13 VBG O2 Sat (Calc) 80.5 % (40-65) H 11/29/17 01:13 VBG Base Excess -4.4 mmol/L (0.0-2.0) L 11/29/17 01:13 VBG Potassium 3.0 mmol/L (3.6-5.2) L 11/29/17 01:13 Sodium 129.0 mmol/L (132-148) L 11/29/17 01:13 Chloride 104.0 mmol/L (98-107) 11/29/17 01:13 Glucose 289 mg/dL (65-105) H 11/29/17 01:13 Lactate 1.7 mmol/L (0.7-2.1) 11/29/17 01:13 FiO2 21.0 % 11/29/17 01:13 Sodium 139 mmol/l (132-148) 11/28/17 22:15 Potassium 3.5 MMOL/L (3.6-5.0) L 11/28/17 22:15 Chloride 103 mmol/L (98-107) 11/28/17 22:15 Carbon Dioxide 19 mmol/L (22-30) L 11/28/17 22:15 Anion Gap 21 (10-20) H 11/28/17 22:15 BUN 29 mg/dl (7-17) H 11/28/17 22:15 Creatinine 1.3 mg/dl (0.7-1.2) H 11/28/17 22:15 Est GFR ( Amer) 51 11/28/17 22:15 Est GFR (Non-Af Amer) 42 11/28/17 22:15 POC Glucose (mg/dL) 236 mg/dL (65-110) H 11/30/17 11:21 Random Glucose 165 mg/dL (65-105) H 11/28/17 22:15 Calcium 10.2 mg/dL (8.4-10.2) 11/28/17 22:15 Phosphorus 1.7 mg/dl (2.5-4.5) L 11/28/17 22:15 Magnesium 1.6 MG/DL (1.6-2.3) 11/28/17 22:15 Total Bilirubin 1.8 mg/dl (0.2-1.3) H 11/28/17 22:15 AST 33 U/L (14-36) 11/28/17 22:15 ALT 47 U/L (9-52) 11/28/17 22:15 Alkaline Phosphatase 110 U/L (38-126) 11/28/17 22:15 Troponin I 0.0390 ng/mL (0.00-0.120) 11/28/17 22:15 Total Protein 7.7 G/DL (6.3-8.2) 11/28/17 22:15 Albumin 4.1 g/dL (3.5-5.0) 11/28/17 22:15 Globulin 3.7 gm/dL (2.2-3.9) 11/28/17 22:15 Albumin/Globulin Ratio 1.1 (1.0-2.1) 11/28/17 22:15 Venous Blood Potassium 3.0 mmol/L (3.6-5.2) L 11/29/17 01:13 Urine Color Yellow (YELLOW) 11/29/17 01:32 Urine Clarity Turbid (Clear) 11/29/17 01:32 Urine pH 6.0 (5.0-8.0) 11/29/17 01:32 Ur Specific [place] 1.015 (1.003-1.030) 11/29/17 01:32 Urine Protein 100 mg/dL (NEGATIVE) 11/29/17 01:32 Urine Glucose (UA) Neg mg/dL (Normal) 11/29/17 01:32 Urine Ketones Negative mg/dL (NEGATIVE) 11/29/17 01:32 Urine Blood Moderate (NEGATIVE) 11/29/17 01:32 Urine Nitrate Negative (NEGATIVE) 11/29/17 01:32 Urine Bilirubin Negative (NEGATIVE) 11/29/17 01:32 Urine Urobilinogen 0.2-1.0 mg/dL (0.2-1.0) 11/29/17 01:32 Ur Leukocyte Esterase Large [place]/uL (Negative) 11/29/17 01:32 Urine RBC (Auto) 51 /hpf (0-3) H 11/29/17 01:32 Urine WBC Clumps (Auto) Mod /hpf (NONE) H 11/29/17 01:32 Urine Microscopic WBC 1037 /hpf (0-5) H 11/29/17 01:32 Urine Bacteria Occ (<OCC) H 11/29/17 01:32 Urine Yeast (Budding) Few /hpf (NEGATIVE) H 11/29/17 01:32 - Hospital Course Hospital Course: 57 yrs old female AD 2-23 CC dificulty dysuria 3-4 days [employer] , fever chills doa , pATIENT FLEW DOA from [place] , DR felix prescribed Bactrim , She took 2 dosis, ER [facility] Tmax 102.1 , Hr 40,s She reported Hx Ablation AV node 2nd to AFib 20 yrs ago , currently asymptomatic denies C/P , dizziness , syncope Hx UTI one year ago , TIA on Plavix , HTN ,DM , Hypothyroidism , Anxiety , L THR , weakness Left L/E , wheel chair bound CT Abd/Pelvis , R Renal and Pelvic stone , Diverticulitis , large ventral hernia , B/L perinephric stranding L> R , EKG : Bradycardia , CXR : no infiltrate Cardiology consult : Bradycardia 2nd to Ablation AV Node 20 yrs ago , EKG : junctional rhythm 68/m. ECHO : LV normal , LVH , LVEF normal Cardiology f/u 11-30 : Patient N/C , Heart rate 82/m , She was cleared for discharge UC-S : E Coli S to Cipro Patient was treated Tylenol , Klonopin , Plavix , Colace , Synthroid , Protonix , Lyrica ,Zoloft , Cipro Patient was in 11-30-17 was improved and stable to be discharged, see inst/med DEC , f/u PMD out patient one week , - Date & Time of H&P Date of H&P: 11/29/17 Time of H&P: 12:45 Discharge Exam - Head Exam Head Exam: NORMAL INSPECTION - Eye Exam Eye Exam: PERRL - ENT Exam ENT Exam: Normal Exam - Neck Exam Neck exam: Normal Inspection - Respiratory Exam Respiratory Exam: NORMAL BREATHING PATTERN - Cardiovascular Exam Cardiovascular Exam: Bradycardia - GI/Abdominal Exam GI & Abdominal Exam: Normal Bowel Sounds, Soft - Extremities Exam Extremities exam: normal inspection - Back Exam Back exam: NORMAL INSPECTION - Neurological Exam Neurological exam: Alert, CN II-XII Intact, Oriented x3 Additional comments: weakness Left lower extremity - Psychiatric Exam Psychiatric exam: Normal Affect - Skin Skin Exam: Warm Discharge Plan - Follow Up Plan Condition: FAIR Disposition: HOME/ ROUTINE Patient education suggested?: Yes Instructions: Urinary Tract Infection, Adult (DC) Additional Instructions: If experiences fever, chills, severe abdominal pain, nausea/vomiting return to the nearest Emergency Room.
--- NOTE | 2017-12-03 08:39 | PQF SEPSIS ---
This form is a permanent part of the medical record DR. SHERWIN BAIG: EMERGENCY ROOM CLINICAL IMPRESSION WAS SEPSIS. COULD YOU PLEASE CLARIFY IF SEPSIS WAS RULED IN OR OUT. PRESENT ON ADMISSION. Clarification of your documentation is requested to better reflect the severity of illness and intensity of treatment of your patient. Indicators present [X] Temp < 96.8 or > 100.4 [] WBC count > 12,000/mm3 or <000/mm3 or 10% immature neutrophils [] Heart Rate > 90 [] Respiratory Rate > 20 [X] Fever or hypothermia [X] Chills [] Positive blood cultures [X] Hypotension [] Metabolic acidosis (Elevated lactate level, anion gap or reduced blood pH) [] Acute confusion /Altered Mental Status [] Shock [] Other: [] Location in the medical record that reflects the above clinical findings: [] Treatment Provided: [] PHYSICIAN'S RESPONSE Based on your medical judgment of the clinical indicators outlined above, are you treating this patient for a known or suspected: [] Sepsis / Septicemia Please specify organism if known [] [] SIRS (Systemic Inflammatory Response Syndrome) [] Severe Sepsis (Sepsis with Associated Organ Dysfunction) [] Fever of Unknown Origin [] Other, please indicate: [] [] If Unable to Determine, please check the box, sign and date. Present On Admission (POA) Indicator: [] Present at the time of admission [] Not present at the time of admission [] Clinically Undetermined In responding to this query, please exercise your independent professional judgment. The fact that a question is asked does not imply that any particular answer is desired or expected. Thank you for your clarification on this documentation. If you have any questions please call:[ ] * Thank you, * SINDY DUARTE [phone] generation technician MARCOS
== END 2017-11-30 15:30 | disposition home or self-care (01) | DRG 872 ==
LOC: H.ER 21:28 → H.ERHOLD 23:52 → H.TEL 11-29 02:15
PROVIDERS: ADMIT Internal Medicine Pulmonary Disease; ATTEND Internal Medicine Pulmonary Disease
DX: A41.9 Sepsis, unspecified organism (principal); I48.91 Unspecified atrial fibrillation; N39.0 Urinary tract infection, site not specified; K57.92 Diverticulitis of intestine, part unspecified, without perforation or abscess without bleeding; E03.9 Hypothyroidism, unspecified; E11.9 Type 2 diabetes mellitus without complications; F32.9 Major depressive disorder, single episode, unspecified; F41.9 Anxiety disorder, unspecified; I10 Essential (primary) hypertension; K43.9 Ventral hernia without obstruction or gangrene; N20.0 Calculus of kidney; R32 Unspecified urinary incontinence; Z79.02 Long term (current) use of antithrombotics/antiplatelets; Z86.73 Personal history of transient ischemic attack (TIA), and cerebral infarction without residual deficits; Z87.440 Personal history of urinary (tract) infections; Z99.3 Dependence on wheelchair; Z79.899 Other long term (current) drug therapy; R00.1 Bradycardia, unspecified; R39.15 Urgency of urination